=== PATIENT | male | born 1955 | race Caucasian/White ===

== ENCOUNTER → 2019-02-19 | Outpatient (CLI) | payer OTHER ==
--- NOTE | 2019-02-19 14:31 | PCVCIMAG ---
APPROVED REPORT Study performed: 02/19/2019 12:36:37 EXAM: Comprehensive 2D, Doppler, and color-flow Echocardiogram Patient Location: Echo lab Status: routine BSA: 2.04 HR: 64 bpmBP: 150/82 mmHg Rhythm: Pacemaker Other Information Study Quality: Adequate Indications Pacemaker CAD ischemic cardiomyopathy, ICD 2D Dimensions IVSd: 13.94 (7-11mm) LVDd: 60.47 mm PWd: 10.40 (7-11mm)Ascending Ao: 33.71 (22-36mm) LVDs: 50.83 (25-40mm) Left Atrium: 48.83 (27-40mm) Aortic Root: 32.59 mm LV Single Plane 4CH: 39.67 % LV Single Plane 2CH: 40.27 % Biplane EF: 41.6 % Volumes Left Atrial Volume (Systole) Single Plane 4CH: 69.67 mLSingle Plane 2CH: 53.59 mL LA ESV Index: 41.00 mL/m2 Aortic Valve AoV Peak Eloy.: 1.41 m/s AO Peak Gr.: 7.95 mmHgLVOT Max P.61 mmHg LVOT Max V: 0.95 m/s Mitral Valve E/A Ratio: 1.5 MV Decel. Time: 216.30 ms MV E Max Eloy.: 0.65 m/s MV A Eloy.: 0.44 m/s IVRT: 121.11 ms Pulmonary Valve PV Peak Eloy.: 1.06 m/sPV Peak Gr.: 4.47 mmHg Pulmonary Vein P Vein S: 0.54 m/sP Vein A: 0.32 m/s P Vein D: 0.64 m/sP Vein A Dur.: 141.9 msec P Vein S/D Ratio: 0.84 Tricuspid Valve TR Peak Eloy.: 2.86 m/s TR Peak Gr.: 32.67 mmHg Left Ventricle Left ventricle is mildly dilated. Hypokinesis of the inferior, inferoseptal, and inferolateral cadet Mildly hypertrophic septal wall. Left ventricular systolic function is moderately decreased. LVEF is 40-45%. Mild diastolic dysfunction is present (impaired relaxation pattern). Right Ventricle The right ventricle is normal size. The right ventricular systolic function is normal. Pacemaker lead is present in the right ventricle. Atria Left atrium is moderately dilated. Right atrium is moderately dilated. Pacemaker lead is present in the right atrium. Aortic Valve The aortic valve is normal in structure. No aortic regurgitation is present. There is no aortic valvular stenosis. Mitral Valve Mild mitral annular calcification Mild mitral regurgitation. No evidence of mitral valve stenosis. Tricuspid Valve The tricuspid valve is normal in structure. Moderate tricuspid regurgitation with PAP of 43 mmHg. Pulmonic Valve The pulmonary valve is normal in structure. There is mild pulmonic valvular regurgitation. Great Vessels The aortic root is normal in size. IVC is dilated and collapses >50% with inspiration. Pericardium There is no pericardial effusion. There is no pleural effusion. <Conclusion> Left ventricular systolic function is moderately decreased. Hypokinesis of the inferior, inferoseptal, and inferolateral cadet LVEF is 40-45%. Mild diastolic dysfunction The aortic valve is normal in structure. No aortic regurgitation or stenosis. Mild mitral annular calcification. Mild mitral regurgitation. Moderate tricuspid regurgitation with pulmonary artery pressure of 43 mmHg. There is no pericardial effusion.
== END | disposition home or self-care (01) ==
LOC: PCVCIMAG 13:18
PROVIDERS: ATTEND Internal Medicine
DX: I08.1 Rheumatic disorders of both mitral and tricuspid valves (principal); I25.10 Atherosclerotic heart disease of native coronary artery without angina pectoris; I65.23 Occlusion and stenosis of bilateral carotid arteries; I47.2 Ventricular tachycardia; I10 Essential (primary) hypertension; E78.5 Hyperlipidemia, unspecified; J44.9 Chronic obstructive pulmonary disease, unspecified; Z95.810 Presence of automatic (implantable) cardiac defibrillator; Z87.891 Personal history of nicotine dependence; Z79.82 Long term (current) use of aspirin; Z79.899 Other long term (current) drug therapy; Z79.84 Long term (current) use of oral hypoglycemic drugs
CPT/HCPCS: 93306